=== PATIENT | female | born 2000 | race Caucasian/White ===

== ENCOUNTER → 2021-11-12 | Outpatient (CLI) | payer BC ==
--- NOTE | 2021-11-13 08:24 | Diagnostic Imaging Report ---
MRI RT LOWER EXT JOINT W/O TECHNIQUE: Multiplanar, multisequence MR imaging of the right knee was performed without contrast. COMPARISON: Right knee radiographs of 10/30/2021 INDICATION: Right knee pain FINDINGS: MENISCI Medial meniscus: Normal. Lateral meniscus: Normal. LIGAMENTS ACL: Intact. PCL: Intact. MCL: Intact. LCL: The lateral collateral ligamentous complex is intact. EXTENSOR MECHANISM The extensor mechanism is intact. Mild lateral subluxation of the patella with a tibial tubercle-trochlea groove abnormal at 20 mm. There is also some edema in the superior lateral aspect of Hoffa's fat pad indicative of impingement. CARTILAGE Medial compartment: Medial compartment articular cartilage is well preserved without focal high-grade chondromalacia. Lateral compartment: The lateral compartment articular cartilage is preserved without high-grade chondromalacia. Patellofemoral compartment: Partial thickness chondral loss at the patellar apex with some mild irregularity in the medial and lateral patellar facets. BONE No fracture, stress fracture or osteonecrosis. SOFT TISSUE No knee effusion or Rodriguez's cyst. IMPRESSION: 1. Imaging features are indicative of patellofemoral maltracking and include impingement of the superior lateral aspect of Hoffa's fat pad and lateralization of the tibial tubercle. 2. 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 Other articular cartilage is well preserved. Dictated by: Dictated on workstation # [id number]
== END ==
LOC: RAD 12:50
DX: M22.41 Chondromalacia patellae, right knee (principal); M25.861 Other specified joint disorders, right knee
CPT/HCPCS: 73721